=== PATIENT | male | born 1960 | race African-American/Black ===

== ENCOUNTER 2021-12-25 17:51 | Emergency (ER) | payer OTHER, SELFPAY ==
[2021-12-25 17:54] VITALS: BP 183/92; PULSE 87; RESP 18; TEMP 36.7; O2SAT 98; BMI 28.2
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
[2021-12-25] MEDS: Diphth,Pertus(ACell),Tet Adult 0.5 ML SYRINGE IM (22:34)
== END 2021-12-25 22:49 | disposition home or self-care (01) ==
PROVIDERS: Emergency Provider Emergency Medicine; PCP Internal Medicine
DX: S60.511A Abrasion of right hand, initial encounter (principal); T23.101A Burn of first degree of right hand, unspecified site, initial encounter; X10.2XXA Contact with fats and cooking oils, initial encounter; Y93.9 Activity, unspecified; Y92.9 Unspecified place or not applicable; Y99.9 Unspecified external cause status
CPT/HCPCS: 90471; 90715; 99283; 99284